=== PATIENT | female | born 1985 | race Caucasian/White ===

== ENCOUNTER 2024-01-25 16:07 | Emergency (ER) | payer OTHER, SELFPAY ==
[2024-01-25 16:14] VITALS: BP 105/69; PULSE 106; RESP 18; TEMP 36.2; O2SAT 100
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
[2024-01-25 17:53] VITALS: O2SAT 98
[2024-01-25] MEDS: ACETAMINOPHEN 500 MG TABLET 1000 MG PO (17:55)
[2024-01-25] MEDS: diazePAM INJ (*CRX) 10 MG/2 ML SYRINGE 5 MG IM (17:57)
[2024-01-25 18:33] VITALS: BP 106/71; PULSE 86; RESP 15; O2SAT 100
--- NOTE | 2024-01-25 18:34 | PC.NURSE ---
spoke to the pt at this time about her father calling and asking for an update. pt gave verbal consent for this RN to discuss her care
== END 2024-01-25 19:03 | disposition home or self-care (01) ==
PROVIDERS: Emergency Provider Physician Assistant
DX: F41.9 Anxiety disorder, unspecified (principal); F31.9 Bipolar disorder, unspecified; F20.9 Schizophrenia, unspecified; Z87.891 Personal history of nicotine dependence; Z79.899 Other long term (current) drug therapy; Z79.3 Long term (current) use of hormonal contraceptives
CPT/HCPCS: 96372; 99283; A9270; J3360